=== PATIENT | female | born 1985 | race Caucasian/White ===

== ENCOUNTER 2021-04-18 09:33 | Emergency (ER) | payer SELFPAY ==
[2021-04-18 09:34] VITALS: BP 138/95; PULSE 89; RESP 20; TEMP 36.6; O2SAT 98; BMI 34.9
--- NOTE | 2021-04-18 09:45 | CT_ITS ---
STUDY: CT ABDOMEN AND PELVIS WITHOUT CONTRAST REASON FOR EXAM: Female, 35 years old. Kidney Stone. Right flank pain. RADIATION DOSAGE (If Supplied By Facility): CTDIvol = ( 17.85 ) mGy, DLP = ( 833.76 ) mGycm TECHNIQUE: Transaxial images were obtained from the dome of the diaphragm to the symphysis pubis without oral contrast, and without intravenous contrast. Sagittal and coronal images were reconstructed. Individualized dose optimization techniques were used for this CT. COMPARISON: None. FINDINGS: The visualized lung bases are unremarkable. The visualized portions of the heart are within normal limits. Normal liver. Normal gallbladder and extrahepatic biliary system. Normal spleen. Normal pancreas. Normal bilateral adrenal glands. Minimal right hydronephrosis and right hydroureter. Normal left kidney. Normal visualized stomach. Normal small intestine. There are scattered colonic diverticula consistent with diverticulosis. The appendix is visualized and appears normal. Normal abdominal aorta. Normal inferior vena cava. Normal retroperitoneum. A 2 mm calculus is seen at the base of the bladder on the right side most likely secondary to a recently passed right ureteral calculus. Phleboliths are also seen in the right hemipelvis. Small follicles are seen in both ovaries. There is a small umbilical hernia containing fat. Normal osseous structures. CT/Abdomen/Pelvis without Cont IMPRESSION: 2 mm calculus is seen at the base of the bladder on the right side in keeping with a recently passed right ureteral calculus with mild right hydronephrosis and right hydroureter. Sigmoid diverticulosis. Electronically Signed: Ney Puente MD at 10:50 EST ,
--- NOTE | 2021-04-18 09:46 | EX.ED.DYSGE1 ---
HPI History of Present Illness Chief Complaint: Flank Pain Informant: patient Onset/Context/Timing Onset: Today Context: Gradual Onset Timing: Waxes and wanes Current Severity: Moderate Maximum Severity: Severe Narrative Narrative: Patient present secondary to right flank pain. Pain started at 630 this morning. She is had nausea secondary to the degree of pain. She did note a dark discoloration to her urine. She denies personal history of kidney stone but her sister has had stones. PFSH PFSH Home Medications ketorolac 10 mg PO Q6H PRN 3 Days #10 tab 04/18/21 [Rx Last Taken Unknown] ondansetron 4 mg PO Q8H PRN #10 tab 04/18/21 [Rx Last Taken Unknown] sertraline 50 mg PO DAILY 04/18/21 [History Last Taken Unknown] Allergy/AdvReac Type Severity Reaction Status Date / Time No Known Allergies Allergy Verified 04/18/21 09:37 Surgical History (Updated 04/18/21 @ 09:[address] Cecelia Vera MD) History of Social History Smoking Status: Current every day smoker tobacco type: cigarettes ROS ROS ED Constitutional Constitutional ED: Denies chills or fever(s) Eyes Eyes: Denies change in vision ENT ENT ED: Denies sore throat Cardiovascular Cardiovascular: Denies chest pain Respiratory/Chest Respiratory/Chest: Denies cough or dyspnea Gastrointestinal Gastrointestinal: Reports abdominal pain and nausea; Denies diarrhea or vomiting Genitourinary Genitourinary ED: Reports hematuria; Denies dysuria Musculoskeletal Musculoskeletal: Reports back pain Integumentary Denies rash Neurologic Neurologic: Denies headache(s) or weakness Allergic/Immunologic Allergic/Immunologic ED: Denies urticaria EXAM Physical Exam Const Vital Signs: 04/18/21 09:34 04/18/21 09:58 04/18/21 10:34 Temperature 97.9 F 97.9 F Temperature Source Temporal Temporal Pulse Rate 89 89 Respiratory Rate 20 H 20 H 16 Blood Pressure 138/95 H 138/95 H Blood Pressure Mean 109 109 Pulse Ox 98 98 Oxygen Delivery Method Room Air Room Air Positive well nourished and well developed General Appearance ED: well developed HEENT Reports moist mucous membranes Eyes PERRL and EOMs intact bilaterally Neck supple Chest Wall inspection of chest normal and palpation of chest normal Resp normal respiratory effort and clear to auscultation bilaterally Cardio regular rate and regular rhythm GI non-tender Palpation: soft Back/Spine no CVA tenderness Extremity normal to inspection Psych mental status grossly normal Skin no rashes or lesions noted MDM MDM MDM Narrative Medical decision making narrative: Patient given morphine, Toradol, Zofran, IV fluids. Lab work, urinalysis, CT flank obtained. Lab Data Attestation: I reviewed the patient's lab results. Labs: Laboratory Results - last 24 hr 04/18/21 04/18/21 04/18/21 09:43 09:43 09:43 WBC 7.0 RBC 4.45 Hgb 14.0 Hct 40.2 MCV 90.3 MCH 31.5 MCHC 34.8 RDW Std Deviation 41.1 RDW Coeff of Gustavo 12.4 Plt Count 324 MPV 9.8 Immature Gran % (Auto) 0.400 Neut % (Auto) 49.6 Lymph % (Auto) 39.4 [place] % (Auto) 8.5 Eos % (Auto) 1.4 Baso % (Auto) 0.7 Absolute Neuts (auto) 3.5 Absolute Lymphs (auto) 2.75 Nucleated RBC % 0 Sodium 134 L Potassium 4.2 Chloride 102 Carbon Dioxide 22.0 Anion Gap 10 BUN 17 Creatinine 0.81 Estim Creat Clear Calc 73.85 Est GFR (MDRD) Af Amer 103 Est GFR (MDRD) Non-Af 86 BUN/Creatinine Ratio 20.9 H Glucose 121 H Calcium 8.8 Serum , Qual NEGATIVE Urine Color Urine Clarity Urine pH Ur Specific [place] Urine Protein Urine Glucose (UA) Urine Ketones Urine Occult Blood Urine Nitrite Urine Bilirubin Urine Urobilinogen Ur Leukocyte Esterase 04/18/21 10:40 WBC RBC Hgb Hct MCV MCH MCHC RDW Std Deviation RDW Coeff of Gustavo Plt Count MPV Immature Gran % (Auto) Neut % (Auto) Lymph % (Auto) [place] % (Auto) Eos % (Auto) Baso % (Auto) Absolute Neuts (auto) Absolute Lymphs (auto) Nucleated RBC % Sodium Potassium Chloride Carbon Dioxide Anion Gap BUN Creatinine Estim Creat Clear Calc Est GFR (MDRD) Af Amer Est GFR (MDRD) Non-Af BUN/Creatinine Ratio Glucose Calcium Serum , Qual Urine Color Yellow Urine Clarity Clear Urine pH 5.0 Ur Specific [place] 1.025 Urine Protein 15 H Urine Glucose (UA) Normal Urine Ketones 5 H Urine Occult Blood 50 H Urine Nitrite Negative Urine Bilirubin Negative Urine Urobilinogen Normal Ur Leukocyte Esterase Negative Radiography Diagnostic Testing: Clinical Impression(s) from Imaging Studies Abdomen/Pelvis CT 04/18/21 09:45 IMPRESSION: 2 mm calculus is seen at the base of the bladder on the right side in keeping with a recently passed right ureteral calculus with mild right hydronephrosis and right hydroureter. Sigmoid diverticulosis. Electronically Signed: Ney Puente MD at 10:50 EST , Treatment and Re-Evaluation Comments:: On repeat evaluation patient resting comfortably. Blood work is unremarkable. Urinalysis shows no sign of infection. CT scan confirms a 2 mm calculus at the base the bladder consistent with a recently passed stone. Test results are discussed with patient and at bedside. She will be given a prescription for Toradol and Zofran for potential ureter spasms over the next couple days. She will be referred to urology for follow-up as needed only. Discharge Plan Triage Chief Complaint: Flank Pain ED Provider: Cecelia Vera Dx/Rx/DC Orders Clinical Impression: Kidney stone Instructions: ED Kidney Stone w/ Colic Prescriptions: New ondansetron 4 mg tablet,disintegrating 4 mg PO Q8H PRN (Reason: nausea and vomiting) Qty: 10 RF: 0 ketorolac 10 mg tablet 10 mg PO Q6H PRN (Reason: pain) 3 Days Qty: 10 RF: 0 No Action sertraline 50 mg tablet 50 mg PO DAILY RF: 0 Primary Care Provider: Cintia Christianson NP Referrals: Rachel Crespo MD [STAFF PHYSICIAN] - As Needed Cintia Christianson NP, OCCUPATIONAL HEALTH NURSE MANAGER-C [Primary Care Provider] - Disposition Disposition: Home, Self Care
[2021-04-18 09:54] LABS: Absolute Lymphocyte Count 2.75 X10^3/uL (0.83-4.51); Absolute Neutrophil Count 3.5 X10^3/uL (2.0-7.7); Basophil# 0.05 X10^3/uL; Basophil% 0.7 % (0-1); Eosinophils% 1.4 % (0-5); Hematocrit 40.2 % (37-47); Lymphocyte # 2.75 X10^3/ul (0.83-4.51); Lymphocyte % 39.4 % (19-41); Mean Corp Hgb Conc 34.8 g/dL (32-36); Mean Corpuscular Hgb 31.5 pg (27.0-32.0); Mean Corpuscular Volume 90.3 fL (81-99); Mean Platelet Vol. 9.8 fl (6.2-12.0); Monocyte# 0.59 X10^3/uL; Monocyte% 8.5 % (0-10); NRBC Flagged by Analyzer 0 % (0-5); Neutrophil # 3.46 X10^3/uL (2.7-7.7); Neutrophil % 49.6 % (47-70); Platelet Count 324 K/mm3 (150-450); RBC Distribution Width CV 12.4 % (11.6-14.6); RBC Distribution Width SD 41.1 fl (35.1-43.9); Red Blood Count 4.45 M/mm3 (4.2-5.4)
[2021-04-18] MEDS: 0.9% Normal Saline 1,000 ML 250 ML IV (09:54)
[2021-04-18] MEDS: Ondansetron 4 MG/2 ML Vial IV (09:54)
[2021-04-18] MEDS: Ketorolac 30 MG/ML Syringe IV (09:55)
[2021-04-18] MEDS: Morphine 4 MG/ML Syringe IV (09:56)
[2021-04-18 09:58] VITALS: BP 138/95; PULSE 89; RESP 20; TEMP 36.6; O2SAT 98
[2021-04-18 10:03] LABS: Anion Gap 10 (5-15); BUN 17 mg/dL (7-18); BUN/Creat Ratio 20.9 RATIO (10-20); Calcium,Total 8.8 mg/dL (8.5-10.1); Chloride 102 mmol/L (98-107); Creatinine, Serum 0.81 mg/dL (0.55-1.02); EST Glomerular Filtration Rate 86 mL/min (>60); Est Glom Filt Rate - Afr Amer 103 mL/min (>60); Estimated Creatinine Clearance 73.85 ml/min; Glucose 121 mg/dL (74-106); Potassium 4.2 mmol/L (3.5-5.1); Sodium Level 134 mmol/L (136-145)
[2021-04-18 10:08] LABS: Internal QC Validated? YES +Cl - CLEAR BKGD; Pregnancy, Serum, hCG Quali. NEGATIVE Negative
[2021-04-18 10:34] VITALS: RESP 16
[2021-04-18 10:45] LABS: Bacteria 0 SEEN /hpf (None Seen); Mucous, Urine 0 SEEN /hpf (<or=2+); White Blood Cells 0 SEEN /hpf (0-5)
[2021-04-18 10:57] LABS: Color, Urine Yellow (Yellow); Glucose, Dipstick Normal (Normal); Ketone-Dipstick 5 mg/dl (Negative); Leukocyte Esterase-Dipstick Negative /ul (Negative); Nitrite-Dipstick Negative (Negative); Occult Blood-Urine 50 /ul (Negative); Protein-Dipstick 15 mg/dl (Negative); Specific Gravity, Urine 1.025 (1.002-1.030); Urine Bilirubin Dipstick Negative (Negative); Urine Clarity Clear (Clear); Urine Urobilinogen Normal (Normal)
[2021-04-18 11:17] LABS: Red Blood Cells-Urine 10-25 SEEN /hpf (0-5); Squamous Epithelial Cells - UA 5-10 SEEN /hpf (5-10)
[2021-04-18 11:19] VITALS: BP 135/80; PULSE 85; RESP 16; O2SAT 97
== END 2021-04-18 11:22 | disposition home or self-care (01) ==
PROVIDERS: Emergency Provider Emergency Medicine; PCP Nurse Practitioner Family; Visit Provider Emergency Medicine
DX: N20.0 Calculus of kidney (principal); F17.210 Nicotine dependence, cigarettes, uncomplicated; Z79.899 Other long term (current) drug therapy
CPT/HCPCS: 74176; 80048; 81001; 84703; 85025; 96361; 96374; 96375; 99283; J7030; A4216; J2405